=== PATIENT | male | born 1955 | race Caucasian/White ===

== ENCOUNTER 2022-03-23 06:56 | Emergency (ER) | payer MEDICAID ==
[~2022-03-23] VITALS: Ht 167.6 cm; Wt 61.4 kg
[2022-03-23 07:01] VITALS: BP 140/89
[2022-03-23] MEDS: DiphenhydrAMINE HCL 50 MG/ML VIAL IM ONE (07:32)
[2022-03-23] MEDS: PredniSONE 20 MG TABLET PO ONE (07:32)
[2022-03-23] MEDS ORDERED: DIPH50 PO (07:35)
[2022-03-23] MEDS ORDERED: PRED-554 PO (07:35)
== END 2022-03-23 07:45 | disposition home or self-care (01) ==
LOC: EMS 06:57
DX: R21 Rash and other nonspecific skin eruption (principal); T78.49XA Other allergy, initial encounter; Z98.890 Other specified postprocedural states; X58.XXXA Exposure to other specified factors, initial encounter
CPT/HCPCS: 99283; 96372; J1200; J7512